=== PATIENT | male | born 1990 | race Caucasian/White ===

== ENCOUNTER 2025-09-29 16:51 | Emergency (ER) | payer MEDICAID, SELFPAY ==
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
[2025-09-29 16:59] VITALS: BP 193/106; PULSE 82; RESP 18; TEMP 36.4; O2SAT 100; BMI 46.9
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
[2025-09-29] MEDS: tetanus-dipt-pertussis 0.5 mL SDV IM (18:01)
== END 2025-09-29 18:08 | disposition home or self-care (01) ==
PROVIDERS: Emergency Provider Emergency Medicine
DX: S89.91XA Unspecified injury of right lower leg, initial encounter (principal); W19.XXXA Unspecified fall, initial encounter
CPT/HCPCS: 73562; 90471; 90715; 99283; J9999